=== PATIENT | male | born 1945 | race Caucasian/White ===

== ENCOUNTER → 2019-06-08 | Outpatient (REF) | payer MEDICARE ==
[2019-06-08 14:16] LABS: ALT/SGPT 33 U/L (12-78); BILIRUBIN,DIRECT 0.2 MG/DL (0.0-0.2); BILIRUBIN,TOTAL 0.7 MG/DL (0.2-1.0); COMPLEMENT C3 149 MG/DL (90-180); COMPLEMENT C4 22 MG/DL (10-40); TOTAL PROTEIN 8.1 GM/DL (6.4-8.2)
[2019-06-08 14:18] LABS: TOTAL PROTEIN,RANDOM URINE 92.4 MG/DL (0.0-12.0); URINE TOTAL PROTEIN 92.4 MG/DL (0-12)
[2019-06-09 10:15] LABS: HEPATITIS B SURFACE ANTIBODY NEGATIVE (POSITIVE)
[2019-06-09 10:26] LABS: HEPATITIS B SURFACE ANTIGEN NEGATIVE (NEGATIVE)
[2019-06-09 10:54] LABS: HEPATITIS B CORE ANTIBODY IGM NEGATIVE (NEGATIVE); HEPATITIS C VIRUS ABY INDEX 0.1 INDEX (<0.8)
[2019-06-13 10:57] LABS: ALBUMIN 4.24 GM/DL (3.29-5.55); ALBUMIN % 52.3 % (55.8-66.1); ALPHA-1-GLOBULIN % 4.3 % (2.9-4.9); ALPHA-1-GLOBULINS 0.35 GM/DL (0.17-0.41); ALPHA-2-GLOBULINS 0.97 GM/DL (0.42-0.99); BETA-1-GLOBULINS 0.42 GM/DL (0.28-0.60); BETA-1-GLOBULINS % 5.2 % (4.7-7.2); BETA-2-GLOBULINS % 3.7 % (3.2-6.5); GAMMA GLOBULIN % 22.5 % (11.1-18.8); GAMMA GLOBULINS 1.82 GM/DL (0.65-1.58)
[2019-06-14 00:06] LABS: ANCA-ATYPICAL <1:20 titer (Neg:<1:20); ANTINUCLEAR ANTIBODIES DIRECT Negative (Negative); CYTOPLASMIC NEUTROP AB ANCA-C <1:20 titer (Neg:<1:20); PERINUCLEAR AB ANCA-P <1:20 titer (Neg:<1:20)
[2019-06-14 15:34] LABS: ANTI DS-DNA AB <1:10 titer (.); HEPATITIS B CORE ANTIBODY IGG Negative (Negative)
[2019-06-15 13:50] LABS: URINE VOLUME RANDOM ML
[2019-06-15 13:51] LABS: UPEP INTERPRETATION 2 M-SPIKES IN GAMMA
== END ==
LOC: M LAB REF 13:28
PROVIDERS: ATTEND Internal Medicine Nephrology
DX: R80.9 Proteinuria, unspecified (principal)

== ENCOUNTER → 2019-06-14 | Outpatient (CLI) | payer MEDICARE ==
[~2019-06-14] MED LIST: ASPI81TA85 PO; HYDR12.55 PO; HYDR25TAB PO; INSULANT SC; LANTINJ4 SC; LOSA100T50 PO; METO1TAB87 PO; NOVOINJ3 SC; SIMV40TA20 PO; TOPR25TA PO
--- NOTE | 2019-06-14 16:14 | REP ---
RENAL ULTRASOUND: Real-time sonographic evaluation of the kidneys is performed. Kidneys are normal in size and echotexture, right kidney measuring 10.5 x 3.6 x 4.6 cm and left kidney 10.3 x 4.0 x 5.0 cm. There is no hydronephrosis bilaterally. No renal mass or stone is visualized. IMPRESSION: No hydronephrosis. Electronically Signed by Rey Cordova MD 06/15/2019 04:48 P
--- NOTE | 2019-06-14 16:15 | REP ---
URINARY BLADDER ULTRASOUND: Real-time sonographic evaluation of the urinary bladder performed. The bladder measures 4.8 x 3.6 x 5.2 cm for a total volume of 106 mL. No gross mass or calculus is seen. Postvoid residual is 17 mL. This is 16% of original volume. There are bilateral ureteral jets in the urinary bladder with Doppler color evaluation. IMPRESSION: Mild postvoid residual of 16% as discussed in detail above. Electronically Signed by Rey Cordova MD 06/15/2019 04:58 P
== END ==
LOC: M RAD 13:00
PROVIDERS: ATTEND Internal Medicine Nephrology
DX: N18.3 Chronic kidney disease, stage 3 (moderate) (principal); I12.9 Hypertensive chronic kidney disease with stage 1 through stage 4 chronic kidney disease, or unspecified chronic kidney disease; E11.22 Type 2 diabetes mellitus with diabetic chronic kidney disease

== ENCOUNTER → 2021-07-15 | Outpatient (REF) | payer MEDICARE ==
[~2021-07-15] MED LIST changes: -ASPI81TA85 PO; +ASPI81TA86 PO; +HYDR-3490 PO; -HYDR25TAB PO
== END ==
LOC: M LAB REF 12:58
PROVIDERS: ATTEND Internal Medicine Nephrology
DX: N18.32 Chronic kidney disease, stage 3b (principal)

== ENCOUNTER → 2022-07-14 | Outpatient (CLI) | payer MEDICARE ==
[~2022-07-14] MED LIST changes: +LOSA100T45 PO; -LOSA100T50 PO
== END ==
LOC: M RAD 06:26
PROVIDERS: ATTEND Nurse Practitioner Family
DX: N18.32 Chronic kidney disease, stage 3b (principal); I12.9 Hypertensive chronic kidney disease with stage 1 through stage 4 chronic kidney disease, or unspecified chronic kidney disease; N40.0 Benign prostatic hyperplasia without lower urinary tract symptoms

== ENCOUNTER → 2024-09-06 | Outpatient (CLI) | payer MEDICARE, OTHER ==
[~2024-09-06] MED LIST changes: -LOSA100T45 PO; +LOSA100T46 PO
== END ==
LOC: M RAD 07:23
PROVIDERS: ATTEND Nurse Practitioner Family
DX: N18.32 Chronic kidney disease, stage 3b (principal)

== ENCOUNTER → 2024-12-21 | Outpatient (CLI) | payer MEDICARE, OTHER | LOC: M RAD 08:32 | PROVIDERS: ATTEND Nurse Practitioner Family | DX: I70.0 Atherosclerosis of aorta (principal) ==